=== PATIENT | female | born 1995 | race African-American/Black ===

== ENCOUNTER 2017-09-09 17:47 | Inpatient (IN) | payer OTHER ==
[2017-09-09] MEDS ORDERED: ACETAMINOPHEN 325 MG TAB PO ×2 (19:00→21:30)
[2017-09-09] MEDS: ONDANSETRON 4 MG INJ IV (19:58)
[2017-09-09] MEDS: morphine 2 MG INJ IV (19:58)
[2017-09-09] MEDS: SOD CHLORIDE 0.9% 1,000 ML IV (20:02)
[2017-09-09] MEDS: LEVOFLOXACIN 500MG/D5W (PMX) 100 ML IVPB (20:23)
[2017-09-09] MEDS: DIPHENHYDRAMINE 50 MG INJ IV (20:55)
[2017-09-09] MEDS ORDERED: BISACODYL (EC) 5 MG TAB PO (21:30)
[2017-09-09] MEDS ORDERED: NACL 0.9% 3 ML SYG IV (21:30)
[2017-09-09] MEDS ORDERED: DOCUSATE SODIUM 100 MG CAP PO (21:30)
[2017-09-09] MEDS ORDERED: ONDANSETRON 4 MG INJ IV (21:30)
[2017-09-09] MEDS: HYDROCODONE/APAP (5/325) TAB PO (23:44)
[2017-09-10] MEDS: ONDANSETRON 4 MG INJ IV ×5 (01:54→22:11)
[2017-09-10] MEDS: morphine 2 MG INJ IV ×4 (01:55→20:20)
[2017-09-10] MEDS: DIPHENHYDRAMINE 50 MG INJ IV ×3 (04:15→22:11)
[2017-09-10] MEDS: HYDROCODONE/APAP (5/325) TAB PO ×2 (05:55→12:06)
[2017-09-10] MEDS ORDERED: PANTOPRAZOLE 40 MG INJ IV (06:00)
[2017-09-10] MEDS: PANTOPRAZOLE 40 MG INJ IV (06:00)
[2017-09-10 06:38] LABS: ADD MAN DIFF? NO
[2017-09-10 06:44] LABS: BASOPHILS % 0.3 % (0.0-2.0); HEMATOCRIT 31.8 % (37.0-47.0); HEMOGLOBIN 9.9 g/dl (12.0-16.0); LYMPHOCYTES # 1.2 10^3/ul (0.8-2.9); LYMPHOCYTES % 38.8 % (15.0-51.0); MEAN CORPUSCULAR HEMOGLOBIN 25.3 pg (29.0-33.0); MEAN CORPUSCULAR HGB CONC 31.1 g/dl (32.0-37.0); MEAN CORPUSCULAR VOLUME 81.3 fl (82.0-101.0); MONOCYTE # 0.3 10^3/ul (0.3-0.9); MONOCYTES % 11.2 % (0.0-11.0); NEUTROPHIL # 1.5 10^3/ul (1.6-7.5); NEUTROPHILS % 48.4 % (39.0-77.0); PLATELET COUNT 138 10^3/UL (140-415); RED BLOOD COUNT 3.91 10^6/ul (4.20-5.40)
[2017-09-10] MEDS: SOD CHLORIDE 0.9% 1,000 ML IV (09:15)
[2017-09-10] MEDS: LEVOFLOXACIN 500MG/D5W (PMX) 100 ML IVPB (20:20)
[2017-09-10 20:44] LABS: ALANINE AMINOTRANSFERASE 38 IU/L (13-69); ALBUMIN 3.1 g/dl (3.3-4.9); ALBUMIN/GLOBULIN RATIO 1.24; ALKALINE PHOSPHATASE 52 IU/L (42-121); AMYLASE 45 U/L (11-123); ANION GAP 9 (8-16); ASPARTATE AMINO TRANSFERASE 28 IU/L (15-46); BILIRUBIN,INDIRECT 0.1 mg/dl (0-1.1); BILIRUBIN,TOTAL 0.1 mg/dl (0.2-1.3); BLOOD UREA NITROGEN 5 mg/dl (7-20); CARBON DIOXIDE 25 mmol/L (21-31); CHLORIDE 107 mmol/L (97-110); CREATININE 0.64 mg/dl (0.44-1.00); GLUCOSE 82 mg/dl (70-220); LIPASE 110 U/L (23-300); POTASSIUM 3.4 mmol/L (3.5-5.1); SODIUM 138 mmol/L (135-144); TOTAL PROTEIN 5.6 g/dl (6.1-8.1)
[2017-09-11] MEDS: HYDROCODONE/APAP (5/325) TAB PO ×3 (00:06→18:00)
[2017-09-11] MEDS: ONDANSETRON 4 MG INJ IV ×5 (02:23→20:28)
[2017-09-11] MEDS: morphine 2 MG INJ IV (02:23)
[2017-09-11] MEDS: SOD CHLORIDE 0.9% 1,000 ML IV ×2 (04:37→20:23)
[2017-09-11 06:21] LABS: ABNORMAL IP MESSAGE 1; HEMATOCRIT 32.7 % (37.0-47.0); HEMOGLOBIN 10.2 g/dl (12.0-16.0); MEAN CORPUSCULAR HEMOGLOBIN 25.4 pg (29.0-33.0); MEAN CORPUSCULAR HGB CONC 31.2 g/dl (32.0-37.0); MEAN CORPUSCULAR VOLUME 81.5 fl (82.0-101.0); PLATELET COUNT 146 10^3/UL (140-415); RED BLOOD COUNT 4.01 10^6/ul (4.20-5.40); RED CELL DISTRIBUTION WIDTH 18.9 % (11.5-14.5)
[2017-09-11 06:21] LABS: WHITE BLOOD COUNT 2.7 10^3/ul (4.8-10.8)
[2017-09-11] MEDS: PANTOPRAZOLE 40 MG INJ IV (06:27)
[2017-09-11] MEDS: DIPHENHYDRAMINE 50 MG INJ IV ×2 (06:27→14:22)
[2017-09-11 06:37] LABS: POSITIVE DIFF @See below
[2017-09-11 06:38] LABS: ADD MAN DIFF? YES
[2017-09-11 06:40] LABS: ALANINE AMINOTRANSFERASE 42 IU/L (13-69); ALBUMIN 3.3 g/dl (3.3-4.9); ALBUMIN/GLOBULIN RATIO 1.32; ALKALINE PHOSPHATASE 49 IU/L (42-121); ANION GAP 12 (8-16); ASPARTATE AMINO TRANSFERASE 28 IU/L (15-46); BILIRUBIN,INDIRECT 0.1 mg/dl (0-1.1); BILIRUBIN,TOTAL 0.1 mg/dl (0.2-1.3); BLOOD UREA NITROGEN 4 mg/dl (7-20); CALCIUM 7.9 mg/dl (8.4-10.2); CARBON DIOXIDE 25 mmol/L (21-31); CHLORIDE 107 mmol/L (97-110); CREATININE 0.58 mg/dl (0.44-1.00); GLUCOSE 83 mg/dl (70-220); POTASSIUM 3.6 mmol/L (3.5-5.1); SODIUM 140 mmol/L (135-144); TOTAL PROTEIN 5.8 g/dl (6.1-8.1)
[2017-09-11 08:15] LABS: ANISOCYTOSIS 1+ (0-0); BAND NEUTROPHILS % (M) 1 % (0-4); EOSINOPHILS % (M) 1 % (0-7); HYPOCHROMASIA 1+ (0-0); LYMPHOCYTES #M 1.1 10^3/ul (0.8-2.9); LYMPHOCYTES % (M) 43 % (15-51); MICROCYTOSIS 1+ (0-0); MONOCYTE #M 0.2 10^3/ul (0.3-0.9); MONOCYTES % (M) 8 % (0-11); PLATELET ESTIMATE NORMAL; POIKILOCYTOSIS 2+ (0-0); POLYCHROMASIA 3+ (0-0); SEG NEUT #M 1.3 10^3/ul (1.7-7.5); SEGMENTED NEUTROPHILS (M) % 47 % (39-77); SMUDGE%M 5 % (0-0)
[2017-09-11] MEDS: HYDROmorphONE 0.5 MG/0.5 ML SYG IV ×3 (08:50→20:28)
[2017-09-11] MEDS: METOCLOPRAMIDE 10 MG INJ IV (09:03)
[2017-09-11 11:35] LABS: ADD UMIC YES; UR ASCORBIC ACID NEGATIVE (NEGATIVE); UR BILIRUBIN (Dip) NEGATIVE (NEGATIVE); UR BLOOD (Dip) 2+ mg/dL (NEGATIVE); UR CLARITY CLEAR (CLEAR); UR COLOR STRAW (YELLOW); UR GLUCOSE (Dip) NEGATIVE (NEGATIVE); UR KETONES (Dip) NEGATIVE (NEGATIVE); UR LEUKOCYTE ESTERASE (Dip) NEGATIVE Leu/ul (NEGATIVE); UR MUCUS FEW /HPF (NONE SEEN); UR NITRITE (Dip) NEGATIVE (NEGATIVE); UR RBC 0 /HPF (0-5); UR SPECIFIC GRAVITY (Dip) 1.008 (1.003-1.030); UR SQUAMOUS EPITHELIAL CELL FEW /HPF (FEW); UR TOTAL PROTEIN (Dip) NEGATIVE (NEGATIVE); UR UROBILINOGEN (Dip) NEGATIVE (NEGATIVE); UR WBC 3 /HPF (0-5)
[2017-09-11] MEDS: LEVOFLOXACIN 500MG/D5W (PMX) 100 ML IVPB (20:28)
[2017-09-11] MEDS: AMITRIPTYLINE 25 MG TAB PO (20:28)
[2017-09-11] MEDS: ZOLPIDEM 5 MG TAB PO (21:36)
[2017-09-11] MEDS: DIPHENHYDRAMINE 25 MG CAP PO (21:52)
[2017-09-12] MEDS: ONDANSETRON 4 MG INJ IV ×7 (00:27→21:30)
[2017-09-12] MEDS: HYDROmorphONE 0.5 MG/0.5 ML SYG IV ×4 (02:29→20:57)
[2017-09-12 05:25] LABS: WHITE BLOOD COUNT 2.4 10^3/ul (4.8-10.8)
[2017-09-12 05:25] LABS: ABNORMAL IP MESSAGE 1; HEMATOCRIT 33.1 % (37.0-47.0); HEMOGLOBIN 10.5 g/dl (12.0-16.0); MEAN CORPUSCULAR HEMOGLOBIN 25.5 pg (29.0-33.0); MEAN CORPUSCULAR HGB CONC 31.7 g/dl (32.0-37.0); MEAN CORPUSCULAR VOLUME 80.3 fl (82.0-101.0); PLATELET COUNT 119 10^3/UL (140-415); RED BLOOD COUNT 4.12 10^6/ul (4.20-5.40); RED CELL DISTRIBUTION WIDTH 18.8 % (11.5-14.5)
[2017-09-12 05:48] LABS: POSITIVE DIFF @See below
[2017-09-12 05:49] LABS: ADD MAN DIFF? YES
[2017-09-12] MEDS: PANTOPRAZOLE 40 MG INJ IV (05:59)
[2017-09-12] MEDS: HYDROCODONE/APAP (5/325) TAB PO ×4 (06:00→19:00)
[2017-09-12 06:23] LABS: ANION GAP 12 (8-16); BLOOD UREA NITROGEN 3 mg/dl (7-20); CALCIUM 8.1 mg/dl (8.4-10.2); CARBON DIOXIDE 24 mmol/L (21-31); CHLORIDE 107 mmol/L (97-110); CREATININE 0.66 mg/dl (0.44-1.00); GLUCOSE 86 mg/dl (70-220); POTASSIUM 3.9 mmol/L (3.5-5.1); SODIUM 139 mmol/L (135-144)
[2017-09-12 07:47] LABS: ANISOCYTOSIS 2+ (0-0); BASOPHILS % (M) 1 % (0-2); BURR CELLS 1+ (0-0); EOSINOPHILS % (M) 2 % (0-7); LYMPHOCYTES #M 0.9 10^3/ul (0.8-2.9); LYMPHOCYTES % (M) 40 % (15-51); MONOCYTE #M 0.4 10^3/ul (0.3-0.9); MONOCYTES % (M) 18 % (0-11); OVALOCYTES 2+ (0-0); PLATELET ESTIMATE DECREASED; PLATELET MORPHOLOGY COMMENT @See below; POIKILOCYTOSIS 2+ (0-0); POLYCHROMASIA 1+ (0-0); REACTIVE LYMPHOCYTES% (M) 2 % (0-0); SCHISTOCYTES 1+ (0-0); SEGMENTED NEUTROPHILS (M) % 37 % (39-77); SMUDGE%M 7 % (0-0)
[2017-09-12] MEDS: SOD CHLORIDE 0.9% 1,000 ML IV (17:22)
[2017-09-12] MEDS: AMITRIPTYLINE 25 MG TAB PO (20:53)
[2017-09-12] MEDS: ZOLPIDEM 5 MG TAB PO (21:30)
[2017-09-13] MEDS: HYDROCODONE/APAP (5/325) TAB PO ×2 (00:59→17:19)
[2017-09-13] MEDS: ONDANSETRON 4 MG INJ IV ×5 (01:30→18:46)
[2017-09-13] MEDS: HYDROmorphONE 0.5 MG/0.5 ML SYG IV ×3 (03:02→15:20)
[2017-09-13] MEDS: SOD CHLORIDE 0.9% 1,000 ML IV (04:00)
[2017-09-13] MEDS: PANTOPRAZOLE 40 MG INJ IV (05:17)
[2017-09-13] MEDS ORDERED: PROPOFOL 20 ML (13:40)
[2017-09-13] MEDS ORDERED: FENTAnyl 50 MCG/ML VIAL (14:05)
[2017-09-13] MEDS ORDERED: OXYCODONE/ACETAMINOPHEN (5/325) TAB PO ×2 (14:30)
[2017-09-13] MEDS ORDERED: ONDANSETRON 4 MG INJ IV (14:30)
[2017-09-13] MEDS ORDERED: METOCLOPRAMIDE 10 MG INJ IV (14:30)
[2017-09-13] MEDS ORDERED: MIDAZOLAM 1 MG/ML 2 ML INJ IV (14:30)
[2017-09-13] MEDS ORDERED: MEPERIDINE 25 MG INJ IV (14:30)
[2017-09-13] MEDS ORDERED: DIPHENHYDRAMINE 50 MG INJ IV (14:30)
[2017-09-13] MEDS ORDERED: FENTAnyl 50 MCG/ML VIAL IV ×3 (14:30)
== END 2017-09-13 21:06 | disposition home or self-care (01) | DRG 392 ==
LOC: PP2 17:47
PROVIDERS: Internal Medicine Nephrology
PROC: 0DB68ZX Excision of Stomach, Via Natural or Artificial Opening Endoscopic, Diagnostic (ICD-10-PCS; principal; 2017-09-13 12:35)
DX: K29.50 Unspecified chronic gastritis without bleeding (principal); D61.818 Other pancytopenia; R63.4 Abnormal weight loss; F31.9 Bipolar disorder, unspecified; Z98.890 Other specified postprocedural states; Z68.23 Body mass index [BMI] 23.0-23.9, adult
CPT/HCPCS: 80048; 80053; 81001; 82150; 83690; 85025; 87086; 88305; 88312

== ENCOUNTER 2017-09-20 13:40 | Inpatient (IN) | payer OTHER ==
[2017-09-20] MEDS ORDERED: NACL 0.9% 3 ML SYG IV (15:00)
[2017-09-20] MEDS ORDERED: ONDANSETRON (ODT) 4 MG TAB ODT (15:00)
[2017-09-20] MEDS ORDERED: DOCUSATE SODIUM 100 MG CAP PO ×2 (15:00)
[2017-09-20] MEDS ORDERED: ACETAMINOPHEN 325 MG TAB PO (15:00)
[2017-09-20] MEDS ORDERED: BISACODYL (EC) 5 MG TAB PO (15:00)
[2017-09-20] MEDS ORDERED: ZOLPIDEM 5 MG TAB PO (15:00)
[2017-09-20] MEDS ORDERED: MAGNESIUM HYDROXIDE 30ML CUP PO (15:00)
[2017-09-20] MEDS: HYDROmorphONE 0.5 MG/0.5 ML SYG IV ×2 (15:07→20:00)
[2017-09-20] MEDS: DEXTROSE 5%-0.45% NACL 1,000 ML IV (15:10)
[2017-09-20] MEDS: ONDANSETRON 4 MG INJ IV ×2 (15:10→22:11)
[2017-09-20] MEDS: HYDROCODONE/APAP (5/325) TAB PO (16:24)
[2017-09-20] MEDS: AMITRIPTYLINE 25 MG TAB PO ×2 (21:00→22:06)
[2017-09-20] MEDS ORDERED: HALOPERIDOL 5 MG INJ IV (22:00)
[2017-09-20] MEDS: IBUPROFEN 600 MG TAB PO ×2 (22:00→22:06)
[2017-09-20] MEDS: HALOPERIDOL 5 MG INJ IM (22:06)
[2017-09-21] MEDS: DIPHENHYDRAMINE 50 MG INJ IM (00:34)
[2017-09-21] MEDS: HALOPERIDOL 5 MG INJ IM ×4 (00:34→21:27)
[2017-09-21] MEDS: LORAZEPAM 2 MG INJ IM (00:35)
[2017-09-21] MEDS: DEXTROSE 5%-0.45% NACL 1,000 ML IV (05:06)
[2017-09-21] MEDS: IBUPROFEN 600 MG TAB PO ×3 (05:41→20:04)
[2017-09-21] MEDS: PANTOPRAZOLE 40 MG INJ IV (05:41)
[2017-09-21] MEDS: HYDROmorphONE 0.5 MG/0.5 ML SYG IV ×3 (08:44→17:28)
[2017-09-21] MEDS: AMLODIPINE 2.5 MG TAB PO (09:00)
[2017-09-21] MEDS ORDERED: PANTOPRAZOLE (EC) 40 MG TAB PO (09:00)
[2017-09-21] MEDS: ONDANSETRON 4 MG INJ IV ×2 (09:17→22:20)
[2017-09-21 11:43] LABS: ADD MAN DIFF? NO
[2017-09-21 11:46] LABS: WHITE BLOOD COUNT 7.4 10^3/ul (4.8-10.8)
[2017-09-21 11:46] LABS: BASOPHILS % 0.4 % (0.0-2.0); HEMATOCRIT 35.2 % (37.0-47.0); HEMOGLOBIN 11.4 g/dl (12.0-16.0); LYMPHOCYTES # 0.9 10^3/ul (0.8-2.9); LYMPHOCYTES % 12.1 % (15.0-51.0); MEAN CORPUSCULAR HEMOGLOBIN 25.2 pg (29.0-33.0); MEAN CORPUSCULAR HGB CONC 32.4 g/dl (32.0-37.0); MEAN CORPUSCULAR VOLUME 77.9 fl (82.0-101.0); MEAN PLATELET VOLUME 11.9 fl (7.4-10.4); MONOCYTE # 0.5 10^3/ul (0.3-0.9); MONOCYTES % 7.1 % (0.0-11.0); NEUTROPHIL # 5.9 10^3/ul (1.6-7.5); NEUTROPHILS % 79.7 % (39.0-77.0); PLATELET COUNT 311 10^3/UL (140-415); RED BLOOD COUNT 4.52 10^6/ul (4.20-5.40)
[2017-09-21 12:20] LABS: ALANINE AMINOTRANSFERASE 42 IU/L (13-69); ALBUMIN 4.6 g/dl (3.3-4.9); ALBUMIN/GLOBULIN RATIO 1.17; ALKALINE PHOSPHATASE 81 IU/L (42-121); ANION GAP 17 (8-16); ASPARTATE AMINO TRANSFERASE 40 IU/L (15-46); BILIRUBIN,INDIRECT 0.1 mg/dl (0-1.1); BILIRUBIN,TOTAL 0.1 mg/dl (0.2-1.3); BLOOD UREA NITROGEN 7 mg/dl (7-20); CALCIUM 9.8 mg/dl (8.4-10.2); CARBON DIOXIDE 25 mmol/L (21-31); CHLORIDE 103 mmol/L (97-110); CREATININE 0.51 mg/dl (0.44-1.00); GLUCOSE 111 mg/dl (70-220); POTASSIUM 3.3 mmol/L (3.5-5.1); SODIUM 142 mmol/L (135-144); TOTAL PROTEIN 8.5 g/dl (6.1-8.1)
[2017-09-21] MEDS: VALPROIC ACID 250 MG CAP PO ×2 (13:01→20:04)
[2017-09-21] MEDS: OLANZAPINE (ODT) 5 MG TAB ODT (13:01)
[2017-09-21] MEDS: BENZTROPINE 1 MG TAB PO ×2 (13:01→20:03)
[2017-09-21] MEDS: traMADol 50 MG TAB PO ×2 (15:46→23:05)
[2017-09-21] MEDS: POTASSIUM CHLORIDE (SR) 20 MEQ TAB PO (17:28)
[2017-09-21] MEDS: AMITRIPTYLINE 25 MG TAB PO (20:04)
[2017-09-22] MEDS: PANTOPRAZOLE 40 MG INJ IV (04:33)
[2017-09-22] MEDS: HYDROmorphONE 1 MG/ML SYG IV (04:33)
[2017-09-22] MEDS: IBUPROFEN 600 MG TAB PO ×2 (05:06→09:35)
[2017-09-22 05:40] LABS: ANION GAP 18 (8-16); BLOOD UREA NITROGEN 8 mg/dl (7-20); CALCIUM 9.6 mg/dl (8.4-10.2); CARBON DIOXIDE 23 mmol/L (21-31); CHLORIDE 108 mmol/L (97-110); CREATININE 0.63 mg/dl (0.44-1.00); GLUCOSE 102 mg/dl (70-220); POTASSIUM 3.9 mmol/L (3.5-5.1); SODIUM 145 mmol/L (135-144)
[2017-09-22] MEDS: traMADol 50 MG TAB PO ×2 (07:40→13:36)
[2017-09-22] MEDS: VALPROIC ACID 250 MG CAP PO (08:06)
[2017-09-22] MEDS: AMLODIPINE 2.5 MG TAB PO (08:07)
[2017-09-22] MEDS: BENZTROPINE 1 MG TAB PO (08:07)
[2017-09-22] MEDS: ONDANSETRON 4 MG INJ IV ×2 (08:08→14:19)
[2017-09-22] MEDS: OLANZAPINE (ODT) 5 MG TAB ODT (08:13)
== END 2017-09-22 15:08 | disposition home or self-care (01) | DRG 392 ==
LOC: MS1 13:40
DX: R10.9 Unspecified abdominal pain (principal); R11.10 Vomiting, unspecified
CPT/HCPCS: 80048; 80053; 85025

== ENCOUNTER 2017-10-01 15:05 | Emergency (ER) | payer OTHER | END 2017-10-01 17:37 | disposition home or self-care (01) | LOC: E/R 17:37 | DX: R10.84 Generalized abdominal pain (principal) | CPT/HCPCS: 99283; Z7502 ==

== ENCOUNTER 2017-11-03 01:36 | Emergency (ER) | payer OTHER ==
[2017-11-03] MEDS: DIPHENHYDRAMINE 50 MG INJ IV (04:01)
[2017-11-03] MEDS: ONDANSETRON 4 MG INJ IV (04:01)
[2017-11-03] MEDS: morphine 4 MG/ML VIAL IV (04:01)
[2017-11-03] MEDS: SOD CHLORIDE 0.9% 1,000 ML IV (04:01)
[2017-11-03 04:08] LABS: ADD MAN DIFF? NO
[2017-11-03 04:10] LABS: WHITE BLOOD COUNT 4.8 10^3/ul (4.8-10.8)
[2017-11-03 04:10] LABS: BASOPHILS % 0.4 % (0.0-2.0); EOSINOPHILS # 0.1 10^3/ul (0.0-0.5); EOSINOPHILS % 2.5 % (0.0-7.0); HEMATOCRIT 34.4 % (37.0-47.0); HEMOGLOBIN 10.8 g/dl (12.0-16.0); LYMPHOCYTES # 0.8 10^3/ul (0.8-2.9); LYMPHOCYTES % 16.4 % (15.0-51.0); MEAN CORPUSCULAR HEMOGLOBIN 25.5 pg (29.0-33.0); MEAN CORPUSCULAR HGB CONC 31.4 g/dl (32.0-37.0); MEAN CORPUSCULAR VOLUME 81.3 fl (82.0-101.0); MEAN PLATELET VOLUME 12.1 fl (7.4-10.4); MONOCYTE # 0.3 10^3/ul (0.3-0.9); MONOCYTES % 6.9 % (0.0-11.0); NEUTROPHIL # 3.5 10^3/ul (1.6-7.5); NEUTROPHILS % 73.4 % (39.0-77.0); PLATELET COUNT 223 10^3/UL (140-415); RED BLOOD COUNT 4.23 10^6/ul (4.20-5.40); RED CELL DISTRIBUTION WIDTH 16.6 % (11.5-14.5)
[2017-11-03 04:32] LABS: INR 1.06; PARTIAL THROMBOPLASTIN TIME 27.8 Sec (25.0-35.0); PROTIME 13.9 Sec (11.9-14.9); PT RATIO 1.1
[2017-11-03 04:35] LABS: ALANINE AMINOTRANSFERASE 30 IU/L (13-69); ALBUMIN 4.2 g/dl (3.3-4.9); ALKALINE PHOSPHATASE 84 IU/L (42-121); ANION GAP 15 (8-16); ASPARTATE AMINO TRANSFERASE 23 IU/L (15-46); BLOOD UREA NITROGEN 10 mg/dl (7-20); CALCIUM 8.8 mg/dl (8.4-10.2); CARBON DIOXIDE 25 mmol/L (21-31); CHLORIDE 108 mmol/L (97-110); GLUCOSE 96 mg/dl (70-220); LIPASE 174 U/L (23-300); POTASSIUM 3.5 mmol/L (3.5-5.1); SODIUM 144 mmol/L (135-144); TOTAL PROTEIN 7.2 g/dl (6.1-8.1)
[2017-11-03 04:49] LABS: ADD UMIC YES; UR ASCORBIC ACID NEGATIVE (NEGATIVE); UR BACTERIA FEW /HPF (NONE SEEN); UR BILIRUBIN (Dip) 1+ mg/dL (NEGATIVE); UR BLOOD (Dip) NEGATIVE (NEGATIVE); UR CLARITY CLOUDY (CLEAR); UR COLOR YELLOW (YELLOW); UR GLUCOSE (Dip) NEGATIVE (NEGATIVE); UR KETONES (Dip) NEGATIVE (NEGATIVE); UR LEUKOCYTE ESTERASE (Dip) 3+ Leu/ul (NEGATIVE); UR MUCUS MANY /HPF (NONE SEEN); UR NITRITE (Dip) NEGATIVE (NEGATIVE); UR RBC 7 /HPF (0-5); UR SPECIFIC GRAVITY (Dip) 1.025 (1.003-1.030); UR SQUAMOUS EPITHELIAL CELL MANY /HPF (FEW); UR TOTAL PROTEIN (Dip) 1+ mg/dl (NEGATIVE); UR UROBILINOGEN (Dip) 2+ mg/dL (NEGATIVE); UR WBC 11 /HPF (0-5)
[2017-11-03] MEDS: LORAZEPAM 2 MG INJ IV (05:50)
== END 2017-11-03 07:09 | disposition home or self-care (01) ==
LOC: E/R 01:36
DX: R10.9 Unspecified abdominal pain (principal)
CPT/HCPCS: 36415; 71045; 74176; 80053; 81001; 83690; 85025; 85610; 85730; 93005; 96374; 96375; 99285-25

== ENCOUNTER 2017-11-16 01:53 | Emergency (ER) | payer OTHER ==
[2017-11-16] MEDS: HYDROmorphONE 0.5 MG/0.5 ML SYG IV ×2 (03:29→04:56)
[2017-11-16] MEDS: ONDANSETRON 4 MG INJ IV (03:29)
[2017-11-16] MEDS: SOD CHLORIDE 0.9% 1,000 ML IV (03:29)
[2017-11-16 03:38] LABS: ADD MAN DIFF? NO
[2017-11-16] MEDS: DIPHENHYDRAMINE 50 MG INJ IV (03:46)
[2017-11-16 04:04] LABS: ADD UMIC YES; BASOPHILS % 0.7 % (0.0-2.0); HEMATOCRIT 30.5 % (37.0-47.0); HEMOGLOBIN 9.8 g/dl (12.0-16.0); LYMPHOCYTES # 1.1 10^3/ul (0.8-2.9); LYMPHOCYTES % 26.2 % (15.0-51.0); MEAN CORPUSCULAR HEMOGLOBIN 24.9 pg (29.0-33.0); MEAN CORPUSCULAR HGB CONC 32.1 g/dl (32.0-37.0); MEAN CORPUSCULAR VOLUME 77.6 fl (82.0-101.0); MEAN PLATELET VOLUME 12.5 fl (7.4-10.4); MONOCYTE # 0.5 10^3/ul (0.3-0.9); MONOCYTES % 11.6 % (0.0-11.0); NEUTROPHIL # 2.4 10^3/ul (1.6-7.5); PLATELET COUNT 202 10^3/UL (140-415); RED BLOOD COUNT 3.93 10^6/ul (4.20-5.40); RED CELL DISTRIBUTION WIDTH 16.5 % (11.5-14.5); UR ASCORBIC ACID 40 mg/dL (NEGATIVE); UR BILIRUBIN (Dip) NEGATIVE (NEGATIVE); UR BLOOD (Dip) NEGATIVE (NEGATIVE); UR CLARITY SLIGHTLY CLOUDY (CLEAR); UR COLOR YELLOW (YELLOW); UR GLUCOSE (Dip) NEGATIVE (NEGATIVE); UR KETONES (Dip) 1+ mg/dL (NEGATIVE); UR LEUKOCYTE ESTERASE (Dip) TRACE Leu/ul (NEGATIVE); UR MUCUS MANY /HPF (NONE SEEN); UR NITRITE (Dip) NEGATIVE (NEGATIVE); UR RBC 1 /HPF (0-5); UR SPECIFIC GRAVITY (Dip) 1.028 (1.003-1.030); UR SQUAMOUS EPITHELIAL CELL FEW /HPF (FEW); UR TOTAL PROTEIN (Dip) 1+ mg/dl (NEGATIVE); UR UROBILINOGEN (Dip) 2+ mg/dL (NEGATIVE); UR WBC 4 /HPF (0-5)
[2017-11-16 04:04] LABS: WHITE BLOOD COUNT 4.1 10^3/ul (4.8-10.8)
[2017-11-16 04:15] LABS: ALANINE AMINOTRANSFERASE 29 IU/L (13-69); ALBUMIN 4.1 g/dl (3.3-4.9); ALBUMIN/GLOBULIN RATIO 1.24; ALKALINE PHOSPHATASE 75 IU/L (42-121); ANION GAP 18 (8-16); ASPARTATE AMINO TRANSFERASE 28 IU/L (15-46); BILIRUBIN,INDIRECT 0.2 mg/dl (0-1.1); BILIRUBIN,TOTAL 0.2 mg/dl (0.2-1.3); BLOOD UREA NITROGEN 12 mg/dl (7-20); CARBON DIOXIDE 23 mmol/L (21-31); CHLORIDE 109 mmol/L (97-110); CREATININE 0.57 mg/dl (0.44-1.00); GLUCOSE 88 mg/dl (70-220); LIPASE 114 U/L (23-300); POTASSIUM 3.6 mmol/L (3.5-5.1); SODIUM 146 mmol/L (135-144); TOTAL PROTEIN 7.4 g/dl (6.1-8.1)
== END 2017-11-16 05:15 | disposition home or self-care (01) ==
LOC: E/R 01:53
DX: R10.84 Generalized abdominal pain (principal); R11.2 Nausea with vomiting, unspecified; R40.2142 Coma scale, eyes open, spontaneous, at arrival to emergency department; R40.2252 Coma scale, best verbal response, oriented, at arrival to emergency department; R40.2362 Coma scale, best motor response, obeys commands, at arrival to emergency department
CPT/HCPCS: 36415; 80053; 81001; 81025; 83690; 85025; 87086; 96374; 96375; 96376; 99284-25

== ENCOUNTER 2017-11-20 08:48 | Emergency (ER) | payer OTHER ==
[2017-11-20] MEDS: FAMOTIDINE 20 MG INJ IV (09:30)
[2017-11-20] MEDS: DIPHENHYDRAMINE 25 MG CAP PO (09:31)
[2017-11-20] MEDS: SOD CHLORIDE 0.9% 1,000 ML IV (09:31)
[2017-11-20] MEDS: KETOROLAC 30 MG INJ IV (09:31)
[2017-11-20] MEDS: ONDANSETRON 4 MG INJ IV (09:31)
[2017-11-20 09:53] LABS: ADD MAN DIFF? NO
[2017-11-20 09:54] LABS: BASOPHILS % 0.2 % (0.0-2.0); EOSINOPHILS % 0.7 % (0.0-7.0); HEMATOCRIT 35.1 % (37.0-47.0); HEMOGLOBIN 11.1 g/dl (12.0-16.0); LYMPHOCYTES # 0.8 10^3/ul (0.8-2.9); LYMPHOCYTES % 20.7 % (15.0-51.0); MEAN CORPUSCULAR HEMOGLOBIN 24.8 pg (29.0-33.0); MEAN CORPUSCULAR HGB CONC 31.6 g/dl (32.0-37.0); MEAN CORPUSCULAR VOLUME 78.3 fl (82.0-101.0); MEAN PLATELET VOLUME 12.5 fl (7.4-10.4); MONOCYTE # 0.3 10^3/ul (0.3-0.9); MONOCYTES % 7.4 % (0.0-11.0); NEUTROPHIL # 2.9 10^3/ul (1.6-7.5); NEUTROPHILS % 70.8 % (39.0-77.0); PLATELET COUNT 195 10^3/UL (140-415); RED BLOOD COUNT 4.48 10^6/ul (4.20-5.40); RED CELL DISTRIBUTION WIDTH 16.7 % (11.5-14.5)
[2017-11-20 09:54] LABS: WHITE BLOOD COUNT 4.1 10^3/ul (4.8-10.8)
[2017-11-20 10:12] LABS: ADD UMIC YES; UR ASCORBIC ACID 40 mg/dL (NEGATIVE); UR BACTERIA FEW /HPF (NONE SEEN); UR BILIRUBIN (Dip) NEGATIVE (NEGATIVE); UR BLOOD (Dip) NEGATIVE (NEGATIVE); UR CLARITY SLIGHTLY CLOUDY (CLEAR); UR COLOR YELLOW (YELLOW); UR GLUCOSE (Dip) NEGATIVE (NEGATIVE); UR KETONES (Dip) NEGATIVE (NEGATIVE); UR LEUKOCYTE ESTERASE (Dip) 1+ Leu/ul (NEGATIVE); UR MUCUS FEW /HPF (NONE SEEN); UR NITRITE (Dip) NEGATIVE (NEGATIVE); UR RBC 4 /HPF (0-5); UR SPECIFIC GRAVITY (Dip) 1.021 (1.003-1.030); UR SQUAMOUS EPITHELIAL CELL MODERATE /HPF (FEW); UR TOTAL PROTEIN (Dip) NEGATIVE (NEGATIVE); UR UROBILINOGEN (Dip) 1+ mg/dL (NEGATIVE); UR WBC 5 /HPF (0-5)
[2017-11-20 10:14] LABS: ALANINE AMINOTRANSFERASE 24 IU/L (13-69); ALBUMIN 4.1 g/dl (3.3-4.9); ALBUMIN/GLOBULIN RATIO 1.17; ALKALINE PHOSPHATASE 74 IU/L (42-121); ANION GAP 15 (8-16); ASPARTATE AMINO TRANSFERASE 23 IU/L (15-46); BILIRUBIN,INDIRECT 0.1 mg/dl (0-1.1); BILIRUBIN,TOTAL 0.1 mg/dl (0.2-1.3); BLOOD UREA NITROGEN 11 mg/dl (7-20); CALCIUM 8.7 mg/dl (8.4-10.2); CARBON DIOXIDE 22 mmol/L (21-31); CHLORIDE 109 mmol/L (97-110); CREATININE 0.57 mg/dl (0.44-1.00); GLUCOSE 87 mg/dl (70-220); LIPASE 133 U/L (23-300); POTASSIUM 3.8 mmol/L (3.5-5.1); SODIUM 142 mmol/L (135-144); TOTAL PROTEIN 7.6 g/dl (6.1-8.1)
[2017-11-20 10:15] LABS: OPIATES Negative (NEGATIVE)
[2017-11-20 10:19] LABS: AMPHETAMINE/METHAMPHETAMINE Negative (NEGATIVE); BARBITURATES Negative (NEGATIVE); BENZODIAZEPINES Negative (NEGATIVE); COCAINE Negative (NEGATIVE)
[2017-11-20 10:20] LABS: CANNABINOIDS Positive (NEGATIVE)
[2017-11-20] MEDS: HYDROCODONE/APAP (5/325) TAB PO (10:29)
== END 2017-11-20 10:38 | disposition home or self-care (01) ==
LOC: E/R 08:48
DX: R10.9 Unspecified abdominal pain (principal); Z72.89 Other problems related to lifestyle
CPT/HCPCS: 36415; 80053; 80307; 81001; 81025; 83690; 85025; 96374; 96375; 99284-25

== ENCOUNTER 2018-06-15 03:18 | Emergency (ER) | payer OTHER ==
[2018-06-15 04:10] LABS: ADD MAN DIFF? NO
[2018-06-15 04:14] LABS: WHITE BLOOD COUNT 4.4 10^3/ul (4.8-10.8)
[2018-06-15 04:14] LABS: ABNORMAL IP MESSAGE 1; BASOPHILS % 0.7 % (0.0-2.0); EOSINOPHILS # 0.1 10^3/ul (0.0-0.5); EOSINOPHILS % 1.6 % (0.0-7.0); HEMATOCRIT 33.4 % (37.0-47.0); HEMOGLOBIN 9.9 g/dl (12.0-16.0); LYMPHOCYTES # 1.3 10^3/ul (0.8-2.9); LYMPHOCYTES % 28.3 % (15.0-51.0); MEAN CORPUSCULAR HEMOGLOBIN 22.1 pg (29.0-33.0); MEAN CORPUSCULAR HGB CONC 29.6 g/dl (32.0-37.0); MEAN CORPUSCULAR VOLUME 74.6 fl (82.0-101.0); MEAN PLATELET VOLUME 10.9 fl (7.4-10.4); MONOCYTE # 0.3 10^3/ul (0.3-0.9); MONOCYTES % 7.5 % (0.0-11.0); NEUTROPHIL # 2.7 10^3/ul (1.6-7.5); NEUTROPHILS % 61.7 % (39.0-77.0); PLATELET COUNT 221 10^3/UL (140-415); RED BLOOD COUNT 4.48 10^6/ul (4.20-5.40); RED CELL DISTRIBUTION WIDTH 21.1 % (11.5-14.5)
[2018-06-15 04:17] LABS: POSITIVE DIFF @See below
[2018-06-15] MEDS: morphine 4 MG/ML VIAL IV (04:22)
[2018-06-15] MEDS: SOD CHLORIDE 0.9% 500 ML IV (04:22)
[2018-06-15] MEDS: ONDANSETRON 4 MG INJ IV (04:22)
[2018-06-15 04:29] LABS: ADD UMIC YES; UR ASCORBIC ACID NEGATIVE (NEGATIVE); UR BILIRUBIN (Dip) NEGATIVE (NEGATIVE); UR BLOOD (Dip) 3+ mg/dL (NEGATIVE); UR CLARITY CLOUDY (CLEAR); UR COLOR YELLOW (YELLOW); UR GLUCOSE (Dip) NEGATIVE (NEGATIVE); UR KETONES (Dip) NEGATIVE (NEGATIVE); UR LEUKOCYTE ESTERASE (Dip) TRACE Leu/ul (NEGATIVE); UR MUCUS FEW /HPF (NONE SEEN); UR NITRITE (Dip) NEGATIVE (NEGATIVE); UR RBC > 182 /HPF (0-5); UR SPECIFIC GRAVITY (Dip) 1.018 (1.003-1.030); UR SQUAMOUS EPITHELIAL CELL MODERATE /HPF (FEW); UR TOTAL PROTEIN (Dip) 1+ mg/dl (NEGATIVE); UR UROBILINOGEN (Dip) NEGATIVE (NEGATIVE); UR WBC 3 /HPF (0-5)
[2018-06-15 04:57] LABS: ALBUMIN/GLOBULIN RATIO 1.11; ALKALINE PHOSPHATASE 68 IU/L (42-121); ANION GAP 9 (8-16); ASPARTATE AMINO TRANSFERASE 47 IU/L (15-46); BILIRUBIN,INDIRECT 0.1 mg/dl (0-1.1); BILIRUBIN,TOTAL 0.1 mg/dl (0.2-1.3); BLOOD UREA NITROGEN 11 mg/dl (7-20); CALCIUM 8.6 mg/dl (8.4-10.2); CARBON DIOXIDE 24 mmol/L (21-31); CHLORIDE 113 mmol/L (97-110); CREATININE 0.66 mg/dl (0.44-1.00); GLUCOSE 98 mg/dl (70-220); LIPASE 162 U/L (23-300); POTASSIUM 4.1 mmol/L (3.5-5.1); SODIUM 142 mmol/L (135-144); TOTAL PROTEIN 7.6 g/dl (6.1-8.1)
[2018-06-15] MEDS: DIPHENHYDRAMINE 50 MG INJ IV (05:14)
[2018-06-15 05:49] LABS: ALANINE AMINOTRANSFERASE 34 IU/L (13-69)
== END 2018-06-15 06:21 | disposition home or self-care (01) ==
LOC: E/R 03:18
DX: K86.1 Other chronic pancreatitis (principal); F17.210 Nicotine dependence, cigarettes, uncomplicated; Z86.73 Personal history of transient ischemic attack (TIA), and cerebral infarction without residual deficits
CPT/HCPCS: 36415; 80053; 81001; 81025; 83690; 85025; 96374; 96375; 99284-25

== ENCOUNTER 2018-06-29 02:48 | Emergency (ER) | payer OTHER ==
[2018-06-29] MEDS: HYDROmorphONE 1 MG/ML SYG IV (03:18)
[2018-06-29] MEDS: SOD CHLORIDE 0.9% 1,000 ML IV (03:18)
[2018-06-29] MEDS: DIPHENHYDRAMINE 50 MG INJ IV (03:18)
[2018-06-29] MEDS: ONDANSETRON 4 MG INJ IV (03:18)
[2018-06-29 03:24] LABS: ADD MAN DIFF? NO
[2018-06-29 03:25] LABS: ABNORMAL IP MESSAGE 1; BASOPHILS % 0.7 % (0.0-2.0); EOSINOPHILS # 0.1 10^3/ul (0.0-0.5); EOSINOPHILS % 2.5 % (0.0-7.0); HEMATOCRIT 30.7 % (37.0-47.0); HEMOGLOBIN 9.2 g/dl (12.0-16.0); LYMPHOCYTES # 1.5 10^3/ul (0.8-2.9); LYMPHOCYTES % 35.3 % (15.0-51.0); MEAN CORPUSCULAR HEMOGLOBIN 22.3 pg (29.0-33.0); MEAN CORPUSCULAR VOLUME 74.3 fl (82.0-101.0); MEAN PLATELET VOLUME 10.8 fl (7.4-10.4); MONOCYTE # 0.4 10^3/ul (0.3-0.9); MONOCYTES % 8.5 % (0.0-11.0); NEUTROPHIL # 2.3 10^3/ul (1.6-7.5); NEUTROPHILS % 52.8 % (39.0-77.0); PLATELET COUNT 227 10^3/UL (140-415); RED BLOOD COUNT 4.13 10^6/ul (4.20-5.40); RED CELL DISTRIBUTION WIDTH 21.2 % (11.5-14.5); RETICULOCYTE COUNT # 0.071 X10^6 (0.020-0.110); RETICULOCYTE COUNT % 1.7 % (0.5-1.5); RETICULOCYTE RBC 4.13
[2018-06-29 03:25] LABS: WHITE BLOOD COUNT 4.3 10^3/ul (4.8-10.8)
[2018-06-29 03:26] LABS: POSITIVE DIFF @See below
[2018-06-29 03:47] LABS: ANION GAP 6 (5-13); BLOOD UREA NITROGEN 11 mg/dl (7-20); CALCIUM 8.6 mg/dl (8.4-10.2); CARBON DIOXIDE 25 mmol/L (21-31); CHLORIDE 110 mmol/L (97-110); CREATININE 0.68 mg/dl (0.44-1.00); Estimated GFR > 60 mL/min (>60); GLUCOSE 97 mg/dl (70-220); POTASSIUM 4.6 mmol/L (3.5-5.1); SODIUM 141 mmol/L (135-144)
== END 2018-06-29 05:45 | disposition home or self-care (01) ==
LOC: E/R 02:48
DX: R10.9 Unspecified abdominal pain (principal); F17.210 Nicotine dependence, cigarettes, uncomplicated; Z86.79 Personal history of other diseases of the circulatory system
CPT/HCPCS: 80048; 85025; 85045; 96361; 96374; 96375; 99284-25

== ENCOUNTER 2018-07-18 01:42 | Emergency (ER) | payer OTHER ==
[2018-07-18 02:54] LABS: ADD MAN DIFF? NO
[2018-07-18 02:56] LABS: WHITE BLOOD COUNT 3.6 10^3/ul (4.8-10.8)
[2018-07-18 02:56] LABS: ABNORMAL IP MESSAGE 1; BASOPHILS % 0.6 % (0.0-2.0); EOSINOPHILS # 0.1 10^3/ul (0.0-0.5); EOSINOPHILS % 1.7 % (0.0-7.0); HEMATOCRIT 29.4 % (37.0-47.0); HEMOGLOBIN 8.6 g/dl (12.0-16.0); LYMPHOCYTES # 1.4 10^3/ul (0.8-2.9); LYMPHOCYTES % 37.7 % (15.0-51.0); MEAN CORPUSCULAR HEMOGLOBIN 21.7 pg (29.0-33.0); MEAN CORPUSCULAR HGB CONC 29.3 g/dl (32.0-37.0); MEAN CORPUSCULAR VOLUME 74.1 fl (82.0-101.0); MEAN PLATELET VOLUME 11.4 fl (7.4-10.4); MONOCYTE # 0.4 10^3/ul (0.3-0.9); MONOCYTES % 10.6 % (0.0-11.0); NEUTROPHIL # 1.8 10^3/ul (1.6-7.5); NEUTROPHILS % 49.1 % (39.0-77.0); PLATELET COUNT 233 10^3/UL (140-415); RED BLOOD COUNT 3.97 10^6/ul (4.20-5.40); RED CELL DISTRIBUTION WIDTH 20.2 % (11.5-14.5)
[2018-07-18] MEDS: HYDROmorphONE 2 MG/ML SYG IV (02:56)
[2018-07-18] MEDS: DIPHENHYDRAMINE 50 MG INJ IV ×2 (02:56→04:03)
[2018-07-18] MEDS: ONDANSETRON 4 MG INJ IV (02:57)
[2018-07-18 03:00] LABS: POSITIVE DIFF @See below
[2018-07-18] MEDS: SOD CHLORIDE 0.9% 1,000 ML IV (03:06)
[2018-07-18 03:28] LABS: ALANINE AMINOTRANSFERASE 28 IU/L (13-69); ALBUMIN/GLOBULIN RATIO 1.25; ALKALINE PHOSPHATASE 76 IU/L (42-121); ANION GAP 7 (5-13); ASPARTATE AMINO TRANSFERASE 24 IU/L (15-46); BILIRUBIN,INDIRECT 0.1 mg/dl (0-1.1); BILIRUBIN,TOTAL 0.1 mg/dl (0.2-1.3); BLOOD UREA NITROGEN 12 mg/dl (7-20); CALCIUM 8.4 mg/dl (8.4-10.2); CARBON DIOXIDE 23 mmol/L (21-31); CHLORIDE 113 mmol/L (97-110); CREATININE 0.57 mg/dl (0.44-1.00); Estimated GFR > 60 mL/min (>60); GLUCOSE 97 mg/dl (70-220); SODIUM 143 mmol/L (135-144); TOTAL PROTEIN 7.2 g/dl (6.1-8.1)
[2018-07-18] MEDS: HYDROmorphONE 0.5 MG/0.5 ML SYG IV (04:03)
== END 2018-07-18 05:26 | disposition home or self-care (01) ==
LOC: E/R 01:42
DX: R10.9 Unspecified abdominal pain (principal); R40.2142 Coma scale, eyes open, spontaneous, at arrival to emergency department; R40.2252 Coma scale, best verbal response, oriented, at arrival to emergency department; R40.2362 Coma scale, best motor response, obeys commands, at arrival to emergency department; Z86.73 Personal history of transient ischemic attack (TIA), and cerebral infarction without residual deficits
CPT/HCPCS: 80053; 85025; 96374; 96375; 96376; 99284-25

== ENCOUNTER 2018-07-23 12:00 | Emergency (ER) | payer OTHER ==
[2018-07-23] MEDS: ONDANSETRON 4 MG INJ IV ×2 (14:17→15:29)
[2018-07-23] MEDS: DIPHENHYDRAMINE 50 MG INJ IV (14:17)
[2018-07-23] MEDS: SOD CHLORIDE 0.9% 1,000 ML IV (14:17)
[2018-07-23] MEDS: HYDROmorphONE 1 MG/ML SYG IV (14:17)
[2018-07-23 14:23] LABS: ADD MAN DIFF? NO
[2018-07-23 14:25] LABS: URINE BLOOD (Dip) POC 3+ (NEGATIVE); URINE GLUCOSE (Dip) POC Negative (NEGATIVE); URINE KETONES (Dip) POC Negative (NEGATIVE); URINE LEUKOCYTE EST (Dip) POC Negative (NEGATIVE); URINE NITRITE (Dip) POC Negative (NEGATIVE); URINE TOTAL PROTEIN POC 2+ (NEGATIVE)
[2018-07-23 14:30] LABS: ABNORMAL IP MESSAGE 1; BASOPHILS % 0.5 % (0.0-2.0); EOSINOPHILS # 0.1 10^3/ul (0.0-0.5); EOSINOPHILS % 1.9 % (0.0-7.0); HEMATOCRIT 32.2 % (37.0-47.0); HEMOGLOBIN 9.3 g/dl (12.0-16.0); LYMPHOCYTES # 1.5 10^3/ul (0.8-2.9); LYMPHOCYTES % 34.4 % (15.0-51.0); MEAN CORPUSCULAR HEMOGLOBIN 21.3 pg (29.0-33.0); MEAN CORPUSCULAR HGB CONC 28.9 g/dl (32.0-37.0); MEAN CORPUSCULAR VOLUME 73.7 fl (82.0-101.0); MEAN PLATELET VOLUME 10.9 fl (7.4-10.4); MONOCYTE # 0.4 10^3/ul (0.3-0.9); MONOCYTES % 9.7 % (0.0-11.0); NEUTROPHIL # 2.3 10^3/ul (1.6-7.5); NEUTROPHILS % 53.3 % (39.0-77.0); PLATELET COUNT 253 10^3/UL (140-415); POSITIVE DIFF @See below; RED BLOOD COUNT 4.37 10^6/ul (4.20-5.40); RED CELL DISTRIBUTION WIDTH 19.7 % (11.5-14.5)
[2018-07-23 14:30] LABS: WHITE BLOOD COUNT 4.2 10^3/ul (4.8-10.8)
[2018-07-23 14:44] LABS: ALANINE AMINOTRANSFERASE 26 IU/L (13-69); ALBUMIN 4.3 g/dl (3.3-4.9); ALBUMIN/GLOBULIN RATIO 1.13; ALKALINE PHOSPHATASE 77 IU/L (42-121); ANION GAP 12 (5-13); ASPARTATE AMINO TRANSFERASE 26 IU/L (15-46); BILIRUBIN,INDIRECT 0.2 mg/dl (0-1.1); BILIRUBIN,TOTAL 0.2 mg/dl (0.2-1.3); BLOOD UREA NITROGEN 9 mg/dl (7-20); CALCIUM 8.8 mg/dl (8.4-10.2); CARBON DIOXIDE 25 mmol/L (21-31); CHLORIDE 105 mmol/L (97-110); CREATININE 0.61 mg/dl (0.44-1.00); Estimated GFR > 60 mL/min (>60); GLUCOSE 95 mg/dl (70-220); LIPASE 177 U/L (23-300); POTASSIUM 4.1 mmol/L (3.5-5.1); SODIUM 142 mmol/L (135-144); TOTAL PROTEIN 8.1 g/dl (6.1-8.1)
[2018-07-23 14:46] LABS: INR 0.96; PROTIME 12.9 Sec (11.9-14.9)
[2018-07-23 14:49] LABS: ADD UMIC YES; UR ASCORBIC ACID NEGATIVE (NEGATIVE); UR BACTERIA FEW /HPF (NONE SEEN); UR BILIRUBIN (Dip) NEGATIVE (NEGATIVE); UR BLOOD (Dip) 3+ mg/dL (NEGATIVE); UR BUDDING YEAST FEW /HPF (NONE SEEN); UR CLARITY CLOUDY (CLEAR); UR COLOR YELLOW (YELLOW); UR GLUCOSE (Dip) NEGATIVE (NEGATIVE); UR KETONES (Dip) NEGATIVE (NEGATIVE); UR LEUKOCYTE ESTERASE (Dip) NEGATIVE Leu/ul (NEGATIVE); UR MUCUS FEW /HPF (NONE SEEN); UR NITRITE (Dip) NEGATIVE (NEGATIVE); UR RBC > 182 /HPF (0-5); UR SPECIFIC GRAVITY (Dip) 1.024 (1.003-1.030); UR SQUAMOUS EPITHELIAL CELL FEW /HPF (FEW); UR TOTAL PROTEIN (Dip) 2+ mg/dl (NEGATIVE); UR UROBILINOGEN (Dip) NEGATIVE (NEGATIVE); UR WBC 7 /HPF (0-5)
[2018-07-23] MEDS: HYDROmorphONE 2 MG/ML SYG IV (15:24)
== END 2018-07-23 16:10 | disposition home or self-care (01) ==
LOC: E/R 12:00
DX: D57.1 Sickle-cell disease without crisis (principal); Z86.73 Personal history of transient ischemic attack (TIA), and cerebral infarction without residual deficits
CPT/HCPCS: 36415; 71045; 80053; 81001; 81003; 83690; 85025; 85610; 93005; 96374; 96375; 96376; 99285-25

== ENCOUNTER 2018-08-02 09:40 | Emergency (ER) | payer OTHER ==
[2018-08-02 11:38] LABS: ADD MAN DIFF? NO
[2018-08-02] MEDS: HYDROmorphONE 1 MG/ML SYG IV (11:38)
[2018-08-02] MEDS: ONDANSETRON 4 MG INJ IV (11:38)
[2018-08-02 11:46] LABS: WHITE BLOOD COUNT 3.9 10^3/ul (4.8-10.8)
[2018-08-02 11:46] LABS: ABNORMAL IP MESSAGE 1; BASOPHILS % 0.5 % (0.0-2.0); EOSINOPHILS # 0.1 10^3/ul (0.0-0.5); EOSINOPHILS % 1.8 % (0.0-7.0); HEMOGLOBIN 9.1 g/dl (12.0-16.0); LYMPHOCYTES # 1.2 10^3/ul (0.8-2.9); MEAN CORPUSCULAR HGB CONC 29.4 g/dl (32.0-37.0); MEAN CORPUSCULAR VOLUME 71.6 fl (82.0-101.0); MONOCYTE # 0.3 10^3/ul (0.3-0.9); MONOCYTES % 6.9 % (0.0-11.0); NEUTROPHIL # 2.3 10^3/ul (1.6-7.5); NEUTROPHILS % 59.5 % (39.0-77.0); PLATELET COUNT 259 10^3/UL (140-415); RED BLOOD COUNT 4.33 10^6/ul (4.20-5.40); RED CELL DISTRIBUTION WIDTH 19.6 % (11.5-14.5)
[2018-08-02 11:49] LABS: POSITIVE DIFF @See below
[2018-08-02] MEDS ORDERED: DIPHENHYDRAMINE 50 MG INJ (12:03)
[2018-08-02 12:08] LABS: ALANINE AMINOTRANSFERASE 33 IU/L (13-69); ALBUMIN 4.2 g/dl (3.3-4.9); ALBUMIN/GLOBULIN RATIO 1.16; ALKALINE PHOSPHATASE 73 IU/L (42-121); ANION GAP 10 (5-13); ASPARTATE AMINO TRANSFERASE 32 IU/L (15-46); BILIRUBIN,INDIRECT 0.2 mg/dl (0-1.1); BILIRUBIN,TOTAL 0.2 mg/dl (0.2-1.3); BLOOD UREA NITROGEN 15 mg/dl (7-20); CALCIUM 8.9 mg/dl (8.4-10.2); CARBON DIOXIDE 26 mmol/L (21-31); CHLORIDE 105 mmol/L (97-110); CREATININE 0.63 mg/dl (0.44-1.00); Estimated GFR > 60 mL/min (>60); GLUCOSE 87 mg/dl (70-220); LIPASE 141 U/L (23-300); POTASSIUM 4.1 mmol/L (3.5-5.1); SODIUM 141 mmol/L (135-144); TOTAL PROTEIN 7.8 g/dl (6.1-8.1)
[2018-08-02] MEDS: DIPHENHYDRAMINE 50 MG INJ IV (12:26)
== END 2018-08-02 11:30 | disposition home or self-care (01) ==
LOC: E/R 09:40
DX: R10.13 Epigastric pain (principal); R11.10 Vomiting, unspecified; Z86.73 Personal history of transient ischemic attack (TIA), and cerebral infarction without residual deficits
CPT/HCPCS: 36415; 80053; 83690; 85025; 96374; 96375; 99284-25

== ENCOUNTER 2018-08-12 21:31 | Emergency (ER) | payer OTHER ==
[2018-08-12] MEDS: DIPHENHYDRAMINE 50 MG INJ IM (22:41)
[2018-08-12] MEDS ORDERED: HYDROCODONE/APAP (10/325) TAB PO (23:30)
== END 2018-08-12 23:55 | disposition home or self-care (01) ==
LOC: E/R 21:31
DX: G89.4 Chronic pain syndrome (principal); R40.2142 Coma scale, eyes open, spontaneous, at arrival to emergency department; R40.2362 Coma scale, best motor response, obeys commands, at arrival to emergency department; R40.2252 Coma scale, best verbal response, oriented, at arrival to emergency department; Z76.5 Malingerer [conscious simulation]; Z86.73 Personal history of transient ischemic attack (TIA), and cerebral infarction without residual deficits
CPT/HCPCS: 96372; 99284-25